=== PATIENT | female | born 1950 | race Caucasian/White ===

== ENCOUNTER 2017-02-14 09:39 | Emergency (ER) | payer SELFPAY ==
[2017-02-14 09:46] VITALS: BMI 24.4
--- NOTE | 2017-02-14 10:00 | PDOC ---
History of Present Illness - General History Source: Patient Exam Limitations: No Limitations - History of Present Illness Initial Comments: 02/14/17 10:33 The patient is a 66 year old, Persian speaking, female with a significant past medical history of Hep C, presenting to the Emergency Department with epigastric pain and diarrhea for one week. The patients family member reports that the patient has been having episodes of black diarrhea for one week after meals, about 4 times a day. She reports that she cannot tolerate food, though she has been able to drink shakes. The patients family member states that she just returned from [place] about one week ago. The patient reports that she also feels gassy, and reports a burning sensation radiating up from her stomach. The patient denies nausea, or vomiting. Patient denies fever, cough, and chills. Patient denies headache, or dizziness. Familial Hx: diabetes, breast ca Social Hx: Just returned from [place]. Surgical Hx: cholecystectomy <Raissa James - Last Filed: 02/14/17 12:27> <Jaswinder Barkley - Last Filed: 02/14/17 12:53> - General Chief Complaint: Pain Stated Complaint: STOMACH PAIN Time Seen by Provider: 02/14/17 09:58 Past History <Raissa James - Last Filed: 02/14/17 12:27> - Past Medical History GI Disorders: Yes Liver Disease: Yes (hep c) - Surgical History Cholecystectomy: Yes - Psycho/Social/Smoking Cessation Hx Anxiety: No Suicidal Ideation: No Smoking History: Never smoked Have you smoked in the past 12 months: No Information on smoking cessation initiated: No Hx Alcohol Use: No Drug/Substance Use Hx: No <Jaswinder Barkley - Last Filed: 02/14/17 12:53> - Past Medical History Allergies/Adverse Reactions: Allergies Allergy/AdvReac Type Severity Reaction Status Date / Time No Known Allergies Allergy Verified 02/14/17 09:41 Home Medications: Ambulatory Orders Ondansetron [Ondansetron Odt] 8 mg PO TID #30 tab.rapdis 02/14/17 Ranitidine HCl [Zantac] 150 mg PO QID #40 tablet 02/14/17 Review of Systems - Review of Systems Able to Perform ROS?: Yes Comments:: 02/14/17 10:34 GENERAL/CONSTITUTIONAL: No fever or chills. No weakness. HEAD, EYES, EARS, NOSE AND THROAT: No change in vision. No ear pain or discharge. No sore throat. CARDIOVASCULAR: No chest pain or shortness of breath. RESPIRATORY: No cough, wheezing, or hemoptysis. GASTROINTESTINAL: + epigastric pain and radiating burning, + diarrhea. No nausea, vomiting, or constipation. GENITOURINARY: No dysuria, frequency, or change in urination. MUSCULOSKELETAL: No joint or muscle swelling or pain. No neck or back pain. SKIN: No rash NEUROLOGIC: No headache, vertigo, loss of consciousness, or change in strength/ sensation. ENDOCRINE: No increased thirst. No abnormal weight change. HEMATOLOGIC/LYMPHATIC: No anemia, easy bleeding, or history of blood clots. ALLERGIC/IMMUNOLOGIC: No hives or skin allergy. <Raissa James - Last Filed: 02/14/17 12:27> *Physical Exam - Vital Signs Last Vital Signs Temp Pulse Resp BP Pulse Ox 98 F 72 18 158/77 100 02/14/17 09:41 02/14/17 09:41 02/14/17 09:41 02/14/17 09:41 02/14/17 09:41 - Physical Exam Comments: 02/14/17 10:34 GENERAL: Awake, alert, and fully oriented, in no acute distress HEAD: No signs of trauma EYES: PERRLA, EOMI, sclera anicteric, conjunctiva clear ENT: Auricles normal inspection, hearing grossly normal, nares patent, oropharynx clear without exudates. Moist mucosa NECK: Normal ROM, supple, no lymphadenopathy, JVD, or masses LUNGS: Breath sounds equal, clear to auscultation bilaterally. No wheezes, and no crackles HEART: Regular rate and rhythm, normal S1 and S2, no murmurs, rubs or gallops ABDOMEN: Soft, nontender, normoactive bowel sounds. No guarding, no rebound. No masses EXTREMITIES: Normal range of motion, no edema. No clubbing or cyanosis. No cords, erythema, or tenderness NEUROLOGICAL: Cranial nerves II through XII grossly intact. Normal speech, normal gait SKIN: Warm, Dry, normal turgor, no rashes or lesions noted. <Raissa James - Last Filed: 02/14/17 12:27> - Vital Signs Last Vital Signs Temp Pulse Resp BP Pulse Ox 98 F 72 18 158/77 100 02/14/17 09:41 02/14/17 09:41 02/14/17 09:41 02/14/17 09:41 02/14/17 09:41 <Jaswinder Barkley - Last Filed: 02/14/17 12:53> ED Treatment Course - LABORATORY CBC & Chemistry Diagram: 02/14/17 10:55 02/14/17 10:55 - RADIOLOGY Radiograph Interpretation: 02/14/17 12:18 Abdomen and Chest XRay As reviewed by Dr. Walker Matson IMPRESSION: Chest film showing a small calcified granuloma at the left base. Abdominal film showing no evidence of ileus, obstruction or free air. <Raissa James - Last Filed: 02/14/17 12:27> - LABORATORY CBC & Chemistry Diagram: 02/14/17 10:55 02/14/17 10:55 <Jaswinder Barkley - Last Filed: 02/14/17 12:53> Medical Decision Making - Medical Decision Making 02/14/17 12:27 Symptoms are most likely due to gastroenteritis due to returning from her travels to [place]. The patient's white count is normal so we will not give antibiotics at this time. Patient does not have a PCP, so she will be referred to Dr. Shannan Quinones to follow up. <Raissa James - Last Filed: 02/14/17 12:27> *DC/Admit/Observation/Transfer - Attestations Scribe Attestion: 02/14/17 10:34 Documentation prepared by Raissa James, acting as biomedical scientist for Jaswinder Barkley DO. <Raissa James - Last Filed: 02/14/17 12:27> - Discharge Dispostion Admit: No - Attestations Physician Attestion: 02/14/17 10:00 I, Dr. Jaswinder Barkley, attest that this document has been prepared under my direction and personally reviewed by me in its entirety. I further attest, that it accurately reflects all work, treatment, procedures and medical decision -making performed by me. <Jaswinder Barkley - Last Filed: 02/14/17 12:53> Diagnosis at time of Disposition: Gastroenteritis - Discharge Dispostion Disposition: HOME Condition at time of disposition: Good - Prescriptions Prescriptions: Ranitidine HCl [Zantac] 150 mg PO QID #40 tablet Ondansetron [Ondansetron Odt] 8 mg PO TID #30 tab.rapdis - Referrals Referrals: Shannan Quinones MD [Staff Physician] - - Patient Instructions Additional Instructions: Mrs Beasley- Eat a very bland diet- Use the medications as prescribed- Follow up with Dr. Quinones, Return to us worse or new symptoms occcur. I hope you feel better soon... Return to us worse or new symptoms occur.... Best- Dr. Jaswinder Barkley
[2017-02-14] MEDS ORDERED: diphenhydrAMINE HCL 12.5 MG/5 ML UNIT-DOSE CUPS PO ONE (10:22)
[2017-02-14] MEDS ORDERED: RANITIDINE HCL 150 MG/10 ML UNIT-DOSE CUP PO ONE (10:22)
[2017-02-14] MEDS ORDERED: LIDOCAINE VISCOUS 2% ORAL/TOP 100 ML BOTTLE MM ONE (10:22)
[2017-02-14] MEDS ORDERED: diphenhydrAMINE HCL 12.5 MG/5 ML BULK BOTTLE ONE (10:30)
[2017-02-14] MEDS ORDERED: RANITIDINE HCL 150 MG TABLET (FP) ONE (10:30)
[2017-02-14 11:04] LABS: BASOPHIL 0.6 % (0-2.0); EOSINOPHIL 1.9 % (0-4.5); MCH 30.3 pg (25.7-33.7); MCHC 33.3 g/dl (32.0-36.0); MEAN CELL VOLUME 91.2 fl (80-96); MEAN PLT VOLUME 8.8 fl (7.5-11.1); NEUTROPHILS 58.4 % (42.8-82.8); PLATELET COUNT 211 K/MM3 (134-434); RDW 12.8 % (11.6-15.6); WHITE BLOOD COUNT 7.5 K/mm3 (4.0-10.0)
[2017-02-14 11:09] LABS: URINE APPEARANCE CLEAR; URINE BILIRUBIN NEGATIVE (NEGATIVE); URINE COLOR STRAW; URINE GLUCOSE (UA) NEGATIVE (NEGATIVE); URINE KETONE NEGATIVE (NEGATIVE); URINE LEUK ESTERASE NEGATIVE (NEGATIVE); URINE NITRITE NEGATIVE (NEGATIVE); URINE PROTEIN NEGATIVE (NEGATIVE); URINE UROBILINOGEN NEGATIVE E.U./dl (0.2-1.0)
[2017-02-14 11:17] LABS: INR 1.06 (0.82-1.09); PROTHROMBIN TIME (PATIENT) 11.7 SEC (9.98-11.88)
[2017-02-14 11:28] LABS: ALBUMIN 3.7 g/dl (3.4-5.0); ANION GAP 5 (8-16); BILIRUBIN,TOTAL 0.4 mg/dL (0.2-1.0); CALCIUM 8.9 mg/dL (8.5-10.1); CO2 31 mmol/L (21-32); CREATININE 0.8 mg/dL (0.55-1.02); GLUCOSE,RANDOM 89 mg/dL (74-106); SGOT/AST 31 U/L (15-37); SGPT/ALT 42 U/L (12-78); TOT PROT 7.5 g/dl (6.4-8.2)
[2017-02-14 11:29] LABS: ALK PHOS 85 U/L (45-117)
[2017-02-14 11:41] LABS: URINE BLOOD 1+ (NEGATIVE)
[2017-02-14 14:40] VITALS: BP 130/62; PULSE 62; TEMP 98.1
== END 2017-02-14 14:40 | disposition home or self-care (01) ==
LOC: JER 09:39
DX: K52.9 Noninfective gastroenteritis and colitis, unspecified (principal); B18.2 Chronic viral hepatitis C
CPT/HCPCS: 36415; 71020-TC; 74020-TC; 80053; 81003; 81015; 85025; 85610; 86850; 86900; 86901; 99282-25